=== PATIENT | male | born 1995 | race Caucasian/White ===

== ENCOUNTER 2016-08-12 18:23 | Emergency (ER) | payer MEDICAID ==
[~2016-08-12] VITALS: Ht 182.9 cm; Wt 90.7 kg
--- OUTSIDE RECORDS SUMMARY | 2016-08-12 18:29 | XMS REPORT | Continuity of Care Document ---
Author Author [facility] Organization [facility] Address Unknown Phone Unavailable Allergies Medications Problems Date Dx Coded Attending Type Code Diagnosis Diagnosed By 11/24/2011 FELY SHAH PERICO SHERLYN 296.90 MOOD DISORDER NOS 11/24/2011 FELY SHAH PERICO PLATA 313.81 CD OPPOSITIONAL DEFIANT 11/24/2011 FELY SHAH PERICO PLATA 314.01 ADHD COMBINED 11/24/2011 296.90 MOOD DISORDER NOS 11/24/2011 313.81 CD OPPOSITIONAL DEFIANT 11/24/2011 314.01 ADHD COMBINED 11/24/2011 FELY SHAH PERICO PLATA 296.90 MOOD DISORDER NOS 11/24/2011 FELY SHAH PERICO PLATA 313.81 CD OPPOSITIONAL DEFIANT 11/24/2011 FELY SHAH PERICO PLATA 314.01 ADHD COMBINED 11/24/2011 296.90 MOOD DISORDER NOS 11/24/2011 313.81 CD OPPOSITIONAL DEFIANT 11/24/2011 314.01 ADHD COMBINED 11/13/2012 V58.69 MEDICATION HIGH RISK 11/13/2012 FELY SHAHPERICO V58.69 MEDICATION HIGH RISK 08/12/2016 Ot 987.4 TOXIC EFFECT FREON 08/12/2016 Ot E952.8 SUICIDE-GAS/VAPOR NEC 08/12/2016 ERICK AGUIAR DO Ot 368.8 VISUAL DISTURBANCES NEC 08/12/2016 ERICK AGUIAR DO Ot 780.4 DIZZINESS AND GIDDINESS Procedures Code [place] [address] PSYCH IND W/MED CK 20 03/21/2012 Results Encounters ACCT No. Visit Date/Time Discharge Status Pt. Type Provider Facility Loc./Unit Complaint [id number] 11/08/2012 07:58:00 2012 23:59:59 CLS Outpatient ERICK AGUIAR DO [facility] RAD BLURRY VISION, LIGHT HEADED WHEN STANDING [id number] 08/12/2016 18:26:00 ACT Emergency JARED GORDON DO [facility] ER EYE PROBLEMS [id number] 11/23/2011 13:45:00 Document Registration
--- NOTE | 2016-08-12 20:26 | ED EENT ---
History of Present Illness General Chief Complaint: Eye Problems Stated Complaint: EYE PROBLEMS Nursing Triage Note: PT HERE WITH C/O GETTING DISHWASHING CHEMICALS IN HIS EYES. History of Present Illness Time seen by provider: 20:00 Initial Comments Patient was working at [employer] when water splashed into both eyes in the kitchen. He reports the water had cleaning chemicals and dirty dishes, it had been sitting for a day so he is unsure of what exactly is in the water. He immediately had burning in both eyes and was brought here. He denies any previous injuries to his eyes he wears glasses. Timing/Duration: abrupt, this evening Location: eye (R), eye (L) Prearrival Treatment: no prearrival treatment Associated Symptoms: denies symptoms Allergies and Home Medications Allergies Coded Allergies: No Known Drug Allergies (Unverified , 08/12/16) Review of Systems Constitutional: no symptoms reported see HPI Eyes: See HPIDenies Blurred Vision, Denies Decreased Acuity, Foreign Body Sensation InflammationDenies Pain, Denies Photophobia, Denies Previous Injury, Denies Shadows, Denies Tunnel Vision, Denies Vision Changes, Glasses Ears: No Symptoms Reported See HPI Nose: no symptoms reported see HPI Mouth: no symptoms reported see HPI Throat: no symptoms reported see HPI Respiratory: no symptoms reported see HPI Cardiovascular: no symptoms reported Gastrointestinal: no symptoms reported see HPI Musculoskeletal: no symptoms reported see HPI Skin: no symptoms reported see HPI Neurological: No Symptoms Reported See HPI Hematologic/Lymphatic: No Symptoms Reported See HPI Immunological/Allergic: no symptoms reported see HPI All Other Systems Reviewed Negative Unless Noted: Yes Past Mkzmavc-Ypdhnc-Wtpiqt Hx Patient Social History Alcohol Use: Denies Use Recreational Drug Use: No Smoking Status: Current Everyday Smoker 2nd Hand Smoke Exposure: No Recent Foreign Travel: No Contact w/Someone Who Travel: No Recent Infectious Disease Expo: No Recent Hopitalizations: No Immunizations Up To Date Tetanus Booster (TDap): Unknown Seasonal Allergies Seasonal Allergies: No Surgeries HX Surgeries: Yes Surgeries: Orthopedic Respiratory Hx Respiratory Disorders: No Cardiovascular Hx Cardiac Disorders: No Neurological Hx Neurological Disorders: No Reproductive System Hx Reproductive Disorders: No Sexually Transmitted Disease: No HIV/AIDS: No Genitourinary Hx Genitourinary Disorders: No Gastrointestinal Hx Gastrointestinal Disorders: Yes Gastrointestinal Disorders: Gastrointestinal Bleed Musculoskeletal Hx Musculoskeletal Disorders: No Endocrine Hx Endocrine Disorders: Yes Endocrine Disorders: Hypothyroidsim HEENT HX ENT Disorders: No Cancer Hx Cancer: No Psychosocial Hx Psychiatric Problems: Yes Behavioral Health Disorders: ADD/ADHD, Sleep Difficulties Integumentary HX Skin/Integumentary Disorder: No Blood Transfusions Hx Blood Disorders: No Adverse Reaction to a Blood Tr: No Reviewed Nursing Assessment Reviewed/Agree w Nursing PMH: Yes Physical Exam Vital Signs Vital Sign - Last 12Hours 08/12/16 19:40 Temp 98.0 Pulse 105 Resp 18 B/P 130/79 Pulse Ox 97 O2 Delivery Room Air General Appearance: WD/WN no apparent distress Eyes: bilateral eye EOMI, bilateral eye PERRL, bilateral eye normal inspection Ears: bilateral ear TM normal, bilateral ear auricle normal, bilateral ear canal normal Nose: normal inspectionNo active bleeding, No discharge, No sinus tenderness Mouth/Throat: normal mouth inspection pharynx normal Neck: non-tender full range of motion normal inspection Cardiovascular: regular rate, rhythm no murmur Respiratory: chest non-tender lungs clear Neurologic/Psychiatric: no motor/sensory deficits alert normal mood/affect oriented x 3 Skin: normal color warm/dry Progress/Results/Core Measures Results/Orders My Orders Orders-PEPE ORELLANA Ethan/Poly/Gram Ophthalmic Soln (Neosporin (08/12/16 21:00) Vital Signs/I&O Vital Sign - Last 12Hours 08/12/16 19:40 Temp 98.0 Pulse 105 Resp 18 B/P 130/79 Pulse Ox 97 O2 Delivery Room Air Blood Pressure Mean: 96 Progress Note : Time: 20:10 Progress Note Using nasal cannula connected to 1 L of normal saline, the eyes were irrigated for 15 minutes. Evaluation of eyes after irrigation, no sensation of foreign body, no erythema or swelling noted. Patient reports normal vision. Departure Impression Impression: Primary Impression: Foreign body, eye Qualified Code: T15.90XA - Foreign body on external eye, part unspecified, unspecified eye, initial encounter Disposition: 01 HOME, SELF-CARE Condition: Improved Departure-Patient Inst. Decision time for Depature: 20:30 Patient Instructions: Chemical Eye Injury (DC), How to Use Eye Drops Add. Discharge Instructions: All discharge instructions reviewed with patient and/or family. Voiced understanding. Use antibiotic eyedrop 2 drops each eye every 4 hours Return to emergency Department for visual changes, eye pain, eye discharge or any concerns. PEPE ORELLANA Aug 12, 2016 20:26
[2016-08-12 20:37] VITALS: BP 0/0
[2016-08-12] MEDS ORDERED: NEO/POLYM/GRAM (NEOSPORIN) OPHTH SOLN 10ML OU ONE (21:00)
== END 2016-08-12 21:45 | disposition home or self-care (01) ==
LOC: EDUNIT# 18:23 → ER 18:26
DX: T15.91XA Foreign body on external eye, part unspecified, right eye, initial encounter (principal); T15.92XA Foreign body on external eye, part unspecified, left eye, initial encounter; F17.210 Nicotine dependence, cigarettes, uncomplicated; Y92.511 Restaurant or cafe as the place of occurrence of the external cause; Y93.G1 Activity, food preparation and clean up; Y99.0 Civilian activity done for income or pay
CPT/HCPCS: 99283

== ENCOUNTER → 2018-08-10 | Outpatient (CLI) | payer MEDICAID ==
[2018-08-10 12:15] LABS: AMPHETAMINE SCREEN, URINE POSITIVE (NEGATIVE); BARBITURATE SCREEN URINE NEGATIVE (NEGATIVE); BENZODIAZEPINES SCREEN URINE NEGATIVE (NEGATIVE); CANNABINOID SCREEN, URINE POSITIVE (NEGATIVE); COCAINE SCREEN URINE NEGATIVE (NEGATIVE); METHADONE STAT NEGATIVE (NEGATIVE); METHAMPHETAMINE SCREEN URINE S NEGATIVE (NEGATIVE); OPIATE SCREEN URINE NEGATIVE (NEGATIVE); OXYCODONE STAT NEGATIVE (NEGATIVE); PROPOXYPHENE STAT NEGATIVE (NEGATIVE); TRICYCLIC ANTIDEPRESSANTS SCRE NEGATIVE (NEGATIVE)
== END ==
LOC: LAB 10:49
PROVIDERS: ATTEND Family Medicine
DX: Z77.29 Contact with and (suspected) exposure to other hazardous substances (principal)
CPT/HCPCS: 80306